=== PATIENT | male | born 1955 | race Caucasian/White ===

== ENCOUNTER 2022-05-20 16:36 | Inpatient (IN) | payer OTHER, BC ==
[~2022-05-20] VITALS: Ht 154.9 cm; Wt 61.7 kg
[2022-05-20 16:43] VITALS: BP_SYST 137
--- NOTE | 2022-05-20 17:10 | NUR ---
Placed in room 08 . Placed on potline monitor, blood pressure machine and pulse oximeter. To gown for exam. Side rails up.
[2022-05-20] MEDS ORDERED: NITROGLYCERIN 1 INCH (GM) OINT. TP ONE (17:11)
[2022-05-20] MEDS ORDERED: MORPHINE 4 MG INJ. 4 MG/ML VIAL IVP ONE (17:11)
--- NOTE | 2022-05-20 17:11 | NUR ---
PATIENT BROUGHT IN ALS FROM HOME COMPLAINING OF CHEST PAIN RADIATING TO ABDOMEN 1 HR STORE PERSON. PAIN 10/10 VSS. NO ACUTE DISTRESS NOTED AT THIS TIME
--- NOTE | 2022-05-20 17:13 | NUR ---
ER at bedside examining patient.
[2022-05-20] MEDS ORDERED: LORA-259 PO (17:20)
[2022-05-20] MEDS ORDERED: ARIP5TAB55 PO (17:20)
[2022-05-20] MEDS ORDERED: ALBU90AE2 INH (17:20)
[2022-05-20] MEDS ORDERED: LINA290C PO (17:20)
[2022-05-20] MEDS ORDERED: BUSP15TA3 PO (17:20)
[2022-05-20] MEDS ORDERED: DOXE100C4 PO (17:20)
[2022-05-20] MEDS ORDERED: FLUT1DIS3 INH (17:20)
[2022-05-20] MEDS ORDERED: LISI-652 PO (17:20)
[2022-05-20] MEDS ORDERED: CAT.1 PO (17:20)
[2022-05-20 17:27] LABS: BASOPHILS % (AUTO) 0.5 % (0.0-2.0); EOSINOPHILS # (AUTO) 0.4 K/uL (0.0-0.4); EOSINOPHILS % (AUTO) 5.2 % (0.0-4.0); HEMATOCRIT 28.9 % (36-54); HEMOGLOBIN 9.8 g/dL (14.0-18.0); LYMPHOCYTES # (AUTO) 1.2 K/uL (1.0-5.5); MEAN CORPUSCULAR HEMOGLOBIN 31 pg (27-31); MEAN CORPUSCULAR HGB CONC 34 % (32-36); MEAN CORPUSCULAR VOLUME 90 fL (79.0-98.0); MONOCYTES # (AUTO) 0.8 K/uL (0.0-1.0); NEUTROPHILS # (AUTO) 4.4 K/uL (1.8-7.7); NEUTROPHILS % (AUTO) 65.3 % (40.0-70.0); PLATELET COUNT (AUTO) 247 K/uL (130-430); RED BLOOD CELL COUNT(AUTO) 3.21 MIL/uL (4.2-6.2); RED CELL DISTRIBUTION WIDTH 13.3 % (9.0-15.0); WHITE BLOOD COUNT (AUTO) 6.8 K/uL (4.8-10.8)
--- NOTE | 2022-05-20 17:35 | NUR ---
# 18 gauge angiocath placed to LAC. Use of asceptic technique. Opsite placed over site. Blood return noted. Flushed with 10 cc of normal saline. No evidence of infiltration noted. Patient tolerated well.
[2022-05-20] MEDS ORDERED: ATEN-166 PO (17:36)
[2022-05-20] MEDS ORDERED: [UNRECOGNIZED DRUG - CODE] PO (17:36)
[2022-05-20] MEDS ORDERED: MELO-89 PO (17:36)
[2022-05-20] MEDS ORDERED: DUTA0.5C37 PO (17:36)
[2022-05-20] MEDS ORDERED: GABA-331 PO (17:36)
[2022-05-20 17:50] LABS: ANION GAP 7 (5-15); CALCIUM 8.1 mg/dL (8.4-11.0); CHLORIDE 97 mmol/L (98-107); CREATININE 1.32 mg/dL (0.55-1.30); GLUCOSE 132 mg/dL (70-99); POTASSIUM 4.1 mmol/L (3.5-5.1); UREA NITROGEN, BLOOD 18 mg/dL (8-21)
[2022-05-20 17:51] LABS: GFR AFRICAN AMERICAN 70 mL/min (>90)
[2022-05-20 17:55] LABS: ALANINE AMINOTRANSFERASE 20 U/L (12-78); ALBUMIN 3.3 g/dL (3.4-4.8); ASPARTATE AMINOTRANSFERASE 18 U/L (10-37); TOTAL BILIRUBIN 0.3 mg/dL (0.0-1.0)
--- NOTE | 2022-05-20 19:00 | NUR ---
PATIENT STATES HE IS FULL CODE
--- NOTE | 2022-05-20 19:07 | NUR ---
Received report from MELIDA Marcos; assuming care of patient at this time.
--- NOTE | 2022-05-20 19:07 | NUR ---
Medication reconciliation completed with information provided by PATIENT'S BOTTLES. Any prior medication reconciliation on file was reviewed and corrected.
--- NOTE | 2022-05-20 19:07 | NUR ---
REPORT GIVEN TO MELIDA SEO FOR CONTINUITY OF CARE
--- NOTE | 2022-05-20 19:10 | NUR ---
Patient A/Ox4, VSS, resp even and unlabored. Patient sitting up in bed with side rails raised and watching television. Nad noted at this time.
--- NOTE | 2022-05-20 19:25 | NUR ---
COVID-19 SWAB SENT TO LAB AT 19:23.
--- NOTE | 2022-05-20 20:10 | NUR ---
Admit bed requested Patient will be admitted to care of . Admitted to TELE unit. Diagnosis CHEST PAIN Inpatient (Yes or No) Y Observation (Yes or No) N Orientation concerns or request close to nursing station (Yes or No) N Covid Status NEGATIVE On vent or bipap N Isolation requirements N Needs a sitter N From Home (Yes or if No enter name of facility) YES Requires Dialysis (Yes or No) N Med Rec Completed (Yes of No) Y
[2022-05-20] MEDS ORDERED: ONDANSETRON HCL 4 MG/2 ML VIAL IVP PRN (20:15)
[2022-05-20] MEDS ORDERED: ACETAMINOPHEN 500 MG TABLET PO PRN ×2 (20:15→20:30)
--- NOTE | 2022-05-20 20:30 | NUR ---
Patient will be admitted to care of [facility]. Admitted to Tele unit. Will go to room 128B. Belongings list completed. Complete and up to date summary report printed. SBAR report given to MELIDA Raza at bedside with opportunity for questions.
[2022-05-20] MEDS ORDERED: LORazepam 1 MG TABLET PO SCH (22:45)
--- NOTE | 2022-05-21 00:30 | NUR ---
ADMIT NOTE PT ADMITTED FROM ED. PT FROM HOME WITH C/C OF CX PAIN THAT RADIATED TO THE LEFT SHOULDER. PT HAA HX OF HTN, HYPERLIPIDEMIA, CKD, DEPRESSION AND ANXIETY D/O. PT AOX4 ON R/A AND SAT'S 97%. PT ON TELE WITH NSR IN THE 60'S. PT HAS IV IN THE R AC G 20 FLUSHED AND PATENT. SKIN INTACT WITH NUMEROUS OLD SELF MUTILATION WOUNDS BILAT ON ANTERIOR AND POSTERIOR FOREARMS AND BILT ON BILAT UPPER THIGHS. PT HAS RETENTION AND MD WILL BE CALLED. ALL SAFETY MEASURES IN PLACE WILL CONTINUE TO MONITOR FOR SAFETY.
[2022-05-21] MEDS: LORazepam 2 MG/ML VIAL IVP PRN ×2 (01:00→10:40)
--- NOTE | 2022-05-21 01:05 | NUR ---
CALL PLACED FOR MD AND WILL REQUEST ORDERS FOR F/C R/T RETENTION
--- NOTE | 2022-05-21 01:17 | NUR ---
CONSULTATION PAGED/CALLED Reason for Consultation: CHEST PAIN Person Who was Notified: SOL Consulting Physician: EVELYN Director Of Food And Nutrition Services Specialty: Ordering Physician: CONCEPCION
--- NOTE | 2022-05-21 01:30 | NUR ---
RETURNED CALL NEW ORDER FOR F/C AND ATIVAN IVP PRN ANXIETY
--- NOTE | 2022-05-21 01:45 | NUR ---
PT C/O ANXIETY PT GIVEN PRN ATIVAN ORDERED
--- NOTE | 2022-05-21 03:30 | NUR ---
F/C PLACED AND PT OUTPUT WAS 1100 AND PT REPORTED FEELING BETTER.
[2022-05-21 04:29] VITALS: BP_SYST 126
[2022-05-21 06:09] LABS: BILIRUBIN,URINE NEGATIVE (NEGATIVE); BLOOD, URINE NEGATIVE (NEGATIVE); CLARITY/URINE CLEAR (CLEAR); COLOR,URINE YELLOW (YELLOW); GLUCOSE,URINE NEGATIVE (NEGATIVE); KETONES,URINE NEGATIVE (NEGATIVE); LEUKOCYTE ESTERASE ,URINE NEGATIVE (NEGATIVE); NITRITE, URINE NEGATIVE (NEGATIVE); PROTEIN URINE NEGATIVE (NEGATIVE); UROBILINOGEN,URINE 0.2 (0.2-1.0)
[2022-05-21] MEDS ORDERED: BUDESONIDE 0.5 MG/2 ML AMPUL.NEB INH SCH (07:00)
[2022-05-21] MEDS: ALBUTEROL SULFATE 0.083% 2.5 MG/3 ML VIAL.NEB INH SCH ×2 (07:35→13:24)
[2022-05-21 08:00] VITALS: BP_SYST 140
[2022-05-21] MEDS ORDERED: ASPIRIN 81 MG TAB.CHEW PO SCH (09:00)
[2022-05-21] MEDS ORDERED: FLUTICASONE 250 mCg/SALMETEROL 50 mCg DISKUS W.DEV INH SCH (09:00)
[2022-05-21] MEDS ORDERED: ATENOLOL 25 MG TABLET(TENORMIN) PO SCH (09:00)
[2022-05-21] MEDS ORDERED: cloNIDine HCL 0.1 MG TABLET PO SCH (09:00)
[2022-05-21] MEDS ORDERED: busPIRone HCL 5 MG TABLET PO SCH (09:00)
[2022-05-21] MEDS ORDERED: ARIPiprazole 5 MG TAB PO SCH (09:00)
[2022-05-21] MEDS ORDERED: lisinopriL 5 MG TABLET PO SCH (09:00)
[2022-05-21] MEDS ORDERED: MELOXICAM 7.5 MG TABLET PO SCH (09:00)
[2022-05-21 09:20] LABS: CALCIUM 8.5 mg/dL (8.4-11.0); CREATININE 1.32 mg/dL (0.55-1.30); POTASSIUM 3.9 mmol/L (3.5-5.1)
[2022-05-21 09:27] LABS: ALBUMIN 3.5 g/dL (3.4-4.8); TOTAL BILIRUBIN 0.5 mg/dL (0.0-1.0)
[2022-05-21 12:34] VITALS: BP_SYST 141
[2022-05-21 16:40] VITALS: BP_SYST 113
--- NOTE | 2022-05-21 20:00 | NUR ---
Patient left AMA before nurse resumed care and received report. Patient signed AMA formed and IV line was removed. Education provided to return to ER if chest pain gets worse.
[2022-05-21] MEDS ORDERED: DUTASTERIDE 0.5 MG CAPSULE (AVODART) PO SCH (21:00)
--- NOTE | 2022-05-22 12:05 | NUR ---
Dispo code 07
== END 2022-05-21 22:48 | disposition left against medical advice (07) | DRG 206 ==
LOC: SED 16:36 → STU 20:02
PROVIDERS: ADMIT Family Medicine; ATTEND Family Medicine
DX: M94.0 Chondrocostal junction syndrome [Tietze] (principal); K59.09 Other constipation; F32.A Depression, unspecified; F41.9 Anxiety disorder, unspecified; G62.9 Polyneuropathy, unspecified; G89.4 Chronic pain syndrome; I12.9 Hypertensive chronic kidney disease with stage 1 through stage 4 chronic kidney disease, or unspecified chronic kidney disease; J44.9 Chronic obstructive pulmonary disease, unspecified; N40.0 Benign prostatic hyperplasia without lower urinary tract symptoms; Z20.822 Contact with and (suspected) exposure to COVID-19; N18.30 Chronic kidney disease, stage 3 unspecified; Z79.899 Other long term (current) drug therapy
CPT/HCPCS: 36415; 71045; 76376; 80053; 81003; 83880; 84484; 85025; 85379; 93005; 93306; 94640; 94760; 99291; G0378; J2060; J2270; J7613; J7626